=== PATIENT | female | born 1995 | race Caucasian/White ===

== ENCOUNTER 2022-12-11 08:54 | Inpatient (IN) | payer BC ==
[2022-12-12] MEDS ORDERED: Ondansetron PF 4 MG/2 ML Vial IVP PRN ×2 (06:21→14:52)
[2022-12-12] MEDS ORDERED: fentaNYL 50 mcg/mL 1 mL Vial SLOW IVP PRN (06:21)
[2022-12-12] MEDS ORDERED: NS w/ Oxytocin 30 units 500 ML IV SCH ×3 (06:21)
[2022-12-12] MEDS ORDERED: Lidocaine 1% (PF) 30 ML VIAL SC PRN (06:21)
[2022-12-12] MEDS ORDERED: Misoprostol 100 MCG TAB VAG SCH (06:21)
[2022-12-12] MEDS: Lactated Ringer's 1,000 ML IV SCH ×2 (06:21→11:18)
[2022-12-12] MEDS ORDERED: Ibuprofen 800 MG TAB PO PRN (06:21)
[2022-12-12] MEDS ORDERED: hydrALAZINE 20 MG/ML VIAL SLOW IVP PRN (06:21)
[2022-12-12] MEDS ORDERED: HYDROcodone/Acetaminophen 5/325 mg Tablet PO PRN ×2 (06:21)
[2022-12-12] MEDS ORDERED: Promethazine HCl 25 MG/ML VIAL IM PRN ×2 (06:21→14:52)
[2022-12-12] MEDS ORDERED: Penicillin G Potassium 5 MILL.UNITS in Sodium Chloride 0.9% 100 ML IVPB SCH (06:21)
[2022-12-12 06:32] LABS: Hematocrit 38.9 % (34.9-44.5); Hemoglobin 12.9 g/dL (12.0-15.5); Mean Corpuscular HGB CONC 33.2 g/dL (32.0-36.0); Mean Corpuscular Hemoglobin 30.7 pg (27.0-33.0); Mean Corpuscular Volume 92.6 fl (81.6-98.3); Mean Platelet Volume 12.9 fl (7.4-10.4); Platelet Count 183 10x3/uL (150-450); RBC Distribution Width 16.1 % (11.5-14.5)
[2022-12-12 07:27] VITALS: BMI 25.4
[2022-12-12 07:53] LABS: Syphilis Antibody Nonreactive (Nonreactive); Syphilis Antibody Index 0.05 S/CO (<1.00 Non-Reactive)
[2022-12-12 07:54] LABS: HBSAg Index 0.19 S/CO (0-0.99); Hep B Surf Ag - L&D Non-Reactive S/CO (NonReactive)
[2022-12-12] MEDS: Misoprostol 100 MCG TAB VAG SCH ×4 (09:44→15:23)
[2022-12-12] MEDS ORDERED: fentaNYL/Ropivacaine Epidural 100 ML ONE (13:47)
[2022-12-12] MEDS ORDERED: diphenhydrAMINE 50 MG/ML VIAL IVP PRN (14:52)
[2022-12-12] MEDS ORDERED: Moisturizing Cream (Eucerin) 113 GM JAR TOP PRN (14:52)
[2022-12-12] MEDS ORDERED: Acetaminophen 325 MG TAB PO PRN (14:52)
[2022-12-12] MEDS ORDERED: ePHEDrine Sulfate 50 MG/10 ML VIAL SLOW IVP PRN (14:52)
[2022-12-12] MEDS ORDERED: Naloxone HCl 0.4 mg/ml Vial IVP PRN ×2 (14:52)
[2022-12-12] MEDS ORDERED: Lactated Ringer's 500 ML IV PRN (14:52)
[2022-12-12] MEDS ORDERED: fentaNYL 2 mcg/Ropivacaine 0.2% Epidural 100 ML CADD EPIDURAL SCH (15:00)
[2022-12-12] MEDS ORDERED: Communication Order-Pharmacy FS SCH (15:00)
[2022-12-12] MEDS: Penicillin G 2.5 MILL.units 2.5 MILL.UNITS in Premix Bag 1 BAG IVPB SCH ×3 (15:05→19:29)
[2022-12-12] MEDS ORDERED: Methylergonovine 0.2 MG/ML VIAL ONE (21:46)
[2022-12-12] MEDS ORDERED: Misoprostol 200 MCG TAB ONE (21:46)
[2022-12-12] MEDS ORDERED: Carboprost 250 MCG/ML AMP ONE (21:46)
[2022-12-13] MEDS ORDERED: Ondansetron PF 4 MG/2 ML Vial IVP PRN (03:55)
[2022-12-13] MEDS ORDERED: Bisacodyl 10 MG SUPP PR PRN (03:55)
[2022-12-13] MEDS ORDERED: Preparation H Ointment 28 GM TUBE PR PRN (03:55)
[2022-12-13] MEDS ORDERED: Boostrix 0.5 ML (Tdap) VIAL (>/=7 yrs of age) IM ONE (03:55)
[2022-12-13] MEDS ORDERED: hydrALAZINE 20 MG/ML VIAL SLOW IVP PRN (03:55)
[2022-12-13] MEDS ORDERED: Benzocaine-Menthol 82.5 ML CAN TOP PRN (03:55)
[2022-12-13] MEDS ORDERED: Milk Of Magnesia 30 ML UDCUP PO PRN (03:55)
[2022-12-13] MEDS ORDERED: HYDROcodone/Acetaminophen 5/325 mg Tablet PO PRN ×2 (03:55)
[2022-12-13] MEDS ORDERED: Lanolin Ointment 7 GM TUBE TOP PRN (03:55)
[2022-12-13] MEDS ORDERED: diphenhydrAMINE 25 MG CAP PO PRN (03:55)
[2022-12-13] MEDS ORDERED: NS w/ Oxytocin 30 units 500 ML IV SCH (04:00)
[2022-12-13] MEDS: Misoprostol 100 MCG TAB VAG SCH ×2 (07:55→07:56)
[2022-12-13] MEDS: Penicillin G 2.5 MILL.units 2.5 MILL.UNITS in Premix Bag 1 BAG IVPB SCH (07:56)
[2022-12-13] MEDS: Lactated Ringer's 1,000 ML IV SCH (07:56)
[2022-12-13] MEDS: Ferrous Sulfate 325 MG TAB PO SCH ×2 (09:50→17:40)
[2022-12-13] MEDS: Prenatal Vitamin 1 TAB PO SCH (09:51)
[2022-12-13] MEDS: Docusate 100 MG CAP PO SCH ×2 (09:51→20:58)
[2022-12-13] MEDS: Ibuprofen 800 MG TAB PO SCH ×2 (09:51→17:52)
[2022-12-13] MEDS ORDERED: Bupivacaine 0.25% HCL 30 ML VIAL ONE (12:00)
[2022-12-14] MEDS: Ibuprofen 800 MG TAB PO SCH ×3 (00:30→18:22)
[2022-12-14] MEDS: Ferrous Sulfate 325 MG TAB PO SCH ×2 (08:15→10:42)
[2022-12-14] MEDS: Prenatal Vitamin 1 TAB PO SCH (08:18)
[2022-12-14] MEDS: Docusate 100 MG CAP PO SCH ×2 (08:18→21:27)
[2022-12-15] MEDS: Ibuprofen 800 MG TAB PO SCH ×2 (00:43→08:22)
[2022-12-15] MEDS: Ferrous Sulfate 325 MG TAB PO SCH (07:20)
[2022-12-15] MEDS: Prenatal Vitamin 1 TAB PO SCH (08:21)
[2022-12-15] MEDS: Docusate 100 MG CAP PO SCH (08:21)
[2022-12-15 08:33] VITALS: BP 132/82; TEMP 98.8
== END 2022-12-15 11:10 | disposition home or self-care (01) | DRG 807 ==
LOC: CSHLD 12-12 05:40 → CSHPED 12-13 03:30
PROVIDERS: ADMIT Obstetrics & Gynecology; ATTEND Obstetrics & Gynecology
PROC: 3E0P7VZ Introduction of Hormone into Female Reproductive, Via Natural or Artificial Opening (ICD-10-PCS; 2022-12-12)
PROC: 10907ZC Drainage of Amniotic Fluid, Therapeutic from Products of Conception, Via Natural or Artificial Opening (ICD-10-PCS; 2022-12-12)
PROC: 10E0XZZ Delivery of Products of Conception, External Approach (ICD-10-PCS; principal; 2022-12-13)
PROC: 0KQM0ZZ Repair Perineum Muscle, Open Approach (ICD-10-PCS; 2022-12-13)
PROC: 0UQMXZZ Repair Vulva, External Approach (ICD-10-PCS; 2022-12-13)
DX: O24.429 Gestational diabetes mellitus in childbirth, unspecified control (principal); Z37.0 Single live birth; Z3A.39 39 weeks gestation of pregnancy; O70.1 Second degree perineal laceration during delivery
CPT/HCPCS: 51702; 85027; 86780; 86850; 86900; 86901; 87340; J2405; J2540; J2590; J3490; J7120; S0020